=== PATIENT | female | born 1960 ===

== ENCOUNTER 2017-04-05 14:42 | Observation (INO) | payer OTHER ==
[2017-04-05 14:43] VITALS: BMI 33.9
--- NOTE | 2017-04-05 17:10 | ED PDOC ---
HPI: Hypertension/Hypotension Time Seen by Provider: 04/05/17 16:52 Chief Complaint (Nursing): High Blood Pressure Chief Complaint (Provider): High Blood Pressure History Per: Patient History/Exam Limitations: no limitations Onset/Duration Of Symptoms: Days (x3) Current Symptoms Are (Timing): Still Present Associated Symptoms: Headache (b/l), Other (Shortness of breath). denies: Chest Pain, Blurred Vision, Focal Weakness Exacerbating Factor(s): Pos: Recently Missed Doses Of Medication Additional Complaint(s): Mitzi Brothers is a 56 year old female, with a past medical history of HTN and hypercholesterolemia, who was sent to the emergency department from clinic for elevated blood pressure, headache and shortness of breath with exertion. She reports having bilateral headache onset for x4 weeks, relief with naprosyn at home. She is complaining of shortness of breath with ambulation for the past x2 weeks. Patient reports she has been noncompliant with hypertensive medications for the past x3 days because she ran out. She denies any leg swelling, chest pain, palpitations, paresthesia, weakness, or visual changes. No further medical complaints. PMD: Sam Joseph Past Medical History Reviewed: Historical Data, Nursing Documentation, Vital Signs Vital Signs: Last Vital Signs Temp 98.0 F 04/05/17 14:45 Pulse 77 04/05/17 14:45 Resp 16 04/05/17 14:45 BP 169/105 H 04/05/17 14:45 Pulse Ox 98 04/05/17 14:45 - Medical History PMH: HTN, Hypercholesterolemia, Kidney Stones Denies: HIV, Chronic Kidney Disease - Surgical History Surgical History: Cholecystectomy, - Family History Family History: States: Unknown Family Hx - Social History Current smoker - smoking cessation education provided: No Alcohol: None Drugs: Denies - Immunization History Hx Tetanus Toxoid Vaccination: No Hx Influenza Vaccination: No Hx Pneumococcal Vaccination: No - Home Medications Home Medications: Ambulatory Orders Medication Instructions Recorded Aspirin [Ecotrin] 81 mg PO DAILY 02/18/16 Furosemide [Lasix] 40 mg PO DAILY #30 tab 04/06/17 Losartan Potassium 100 mg PO DAILY #30 tablet 04/06/17 Lovastatin 20 mg PO DAILY #30 tablet 04/06/17 Metoprolol Succinate [Toprol XL] 100 mg PO DAILY #30 tab 04/06/17 - Allergies Allergies/Adverse Reactions: Allergies Allergy/AdvReac Type Severity Reaction Status Date / Time No Known Allergies Allergy Verified 04/05/17 14:45 Review of Systems ROS Statement: Except As Marked, All Systems Reviewed And Found Negative Eyes: Negative for: Vision Change Cardiovascular: Negative for: Chest Pain, Palpitations Respiratory: Positive for: Shortness of Breath (w/ exertion) Musculoskeletal: Negative for: Leg Pain (swelling) Neurological: Positive for: Headache (b/l). Negative for: Weakness, Other ( paresthesia) Physical Exam - Reviewed Nursing Documentation Reviewed: Yes Vital Signs Reviewed: Yes - Physical Exam Appears: Positive for: Well, Non-toxic, No Acute Distress Head Exam: Positive for: ATRAUMATIC, NORMAL INSPECTION, NORMOCEPHALIC Skin: Positive for: Normal Color, Warm, Dry Eye Exam: Positive for: Normal appearance, EOMI, PERRL ENT: Positive for: Normal ENT Inspection Neck: Positive for: Normal, Painless ROM, Supple Cardiovascular/Chest: Positive for: Regular Rate, Rhythm, Chest Non Tender. Negative for: Edema, Murmur Respiratory: Positive for: Normal Breath Sounds (clear auscultation b/l). Negative for: Accessory Muscle Use, Wheezing, Respiratory Distress Gastrointestinal/Abdominal: Positive for: Normal Exam, Soft. Negative for: Tenderness, Guarding, Rebound Back: Positive for: Normal Inspection. Negative for: L CVA Tenderness, R CVA Tenderness, Vertebral Tenderness Extremity: Positive for: Normal ROM. Negative for: Tenderness, Pedal Edema, Calf Tenderness, Deformity, Swelling Neurologic/Psych: Positive for: Alert, Oriented (x3). Negative for: Motor/ Sensory Deficits - Laboratory Results Result Diagrams: 04/05/17 17:15 04/05/17 17:15 - ECG Interpretation Of ECG: NSR @ 77, TWI II, aVF, V3-V6. O2 Sat by Pulse Oximetry: 98 (RA) Pulse Ox Interpretation: Normal Medical Decision Making Medical Decision Making: Initial Impression: Hypertension Initial Plan: --Head w/o contrast [CT] --EKG --B-Type Natriuretic peptide --CMP --Troponin I --Urine dipstick --CBC w/ differential --PTT --PT --Dilaudid 0.5 mg IVP --Urinalysis --reevaluation Accession No. : [id number] Patient Name / ID : IJEOMA KIRK A / [id number] Exam Date : 04/05/2017 17:23:22 ( Approved ) Study Comment : Sex / Age : F / 56Y Creator : Courtney Curry MD Dictator : Courtney Curry MD Bean Roaster : [employer] Consultant : Courtney Curry MD Approver2 : Report Date : 04/05/2017 17:49:45 My Comment : PROCEDURE: CT HEAD WITHOUT CONTRAST. HISTORY: WOOD X 4 weeks COMPARISON: None available. TECHNIQUE: Axial computed tomography images were obtained through the head/brain without intravenous contrast. Radiation dose: Total exam DLP = 816.53 mGy-cm. This CT exam was performed using one or more of the following dose reduction techniques: Automated exposure control, adjustment of the mA and/or kV according to patient size, and/or use of iterative reconstruction technique. FINDINGS: HEMORRHAGE: No intracranial hemorrhage. BRAIN: No mass effect or edema. The stevenson-white matter differentiation appears intact. Please note that MRI with diffusion imaging is more sensitive in the detection of acute ischemic event. VENTRICLES: No hydrocephalus. CALVARIUM: Unremarkable. PARANASAL SINUSES: Unremarkable as visualized. No significant inflammatory changes. MASTOID AIR CELLS: Unremarkable as visualized. No inflammatory changes. OTHER FINDINGS: None. IMPRESSION: No acute intracranial pathology identified. ~ Scribe Attestation: Documented byEstefany Amaya, acting as a scribe for Rufina Blue MD. Provider Scribe Attestation: All medical record entries made by the Scribe were at my direction and personally dictated by me. I have reviewed the chart and agree that the record accurately reflects my personal performance of the history, physical exam, medical decision making, and the department course for this patient. I have also personally directed, reviewed, and agree with the discharge instructions and disposition. Disposition - Clinical Impression Clinical Impression: Hypertensive emergency - Disposition Disposition Time: 19:04 Condition: STABLE - Pt Status Changed To: Hospital Disposition Of: Observation - POA Present On Arrival: None
[2017-04-05 17:30] LABS: BASO % 0.7 % (0.0-2.0); EOS # 0.1 K/uL (0.0-0.7); HEMOGLOBIN 14.3 g/dL (12.0-16.0); LYMPH # 2.6 K/uL (1.0-4.3); LYMPH % 37.6 % (20.0-40.0); MEAN CELL VOLUME 92.9 fl (81.0-99.0); MEAN CORPUSCULAR HEMOGLOBIN 31.2 pg (27.0-31.0); MEAN CORPUSCULAR HGB CONC 33.6 g/dL (33.0-37.0); MEAN PLATELET VOLUME 8.1 fl (7.2-11.7); MONO # 0.4 K/uL (0.0-0.8); MONO % 5.5 % (0.0-10.0); NEUT # 3.9 K/uL (1.8-7.0); NEUT % 55.2 % (50.0-75.0); NRBC % 0.1 % (0.0-0.0); RBC 4.59 Mil/uL (3.80-5.20); RED CELL DISTRIBUTION WIDTH 13.3 % (11.5-14.5)
[2017-04-05 17:38] LABS: PARTIAL THROMBOPLASTIN TIME 29.1 Seconds (25.6-37.1); PROTHROMBIN TIME 10.7 Seconds (9.8-13.1)
[2017-04-05 17:46] LABS: ALB/GLOB RATIO 1.3 (1.0-2.1); ALT/SGPT 42 U/L (9-52); AST/SGOT 34 U/L (14-36); BLOOD UREA NITROGEN 15 mg/dl (7-17); CALCIUM 9.5 mg/dL (8.4-10.2); GFR AFRICAN-AMERICAN > 60; GFR NON-AFRICAN AMERICAN 58
--- NOTE | 2017-04-05 17:51 | CT ---
PROCEDURE: CT HEAD WITHOUT CONTRAST. HISTORY: WOOD X 4 weeks COMPARISON: None available. TECHNIQUE: Axial computed tomography images were obtained through the head/brain without intravenous contrast. Radiation dose: Total exam DLP = 816.53 mGy-cm. This CT exam was performed using one or more of the following dose reduction techniques: Automated exposure control, adjustment of the mA and/or kV according to patient size, and/or use of iterative reconstruction technique. FINDINGS: HEMORRHAGE: No intracranial hemorrhage. BRAIN: No mass effect or edema. The stevenson-white matter differentiation appears intact. Please note that MRI with diffusion imaging is more sensitive in the detection of acute ischemic event. VENTRICLES: No hydrocephalus. CALVARIUM: Unremarkable. PARANASAL SINUSES: Unremarkable as visualized. No significant inflammatory changes. MASTOID AIR CELLS: Unremarkable as visualized. No inflammatory changes. OTHER FINDINGS: None. IMPRESSION: No acute intracranial pathology identified.
[2017-04-05 17:58] LABS: B-TYPE NATRIURETIC PEPTIDE 234 pg/ml (0-900)
[2017-04-05] MEDS ORDERED: Metoprolol Succinate 100 mg XL Tab PO STA (18:17)
[2017-04-05 18:20] LABS: SQUAMOUS EPITHIAL 8 /hpf (0-5); URINE BILIRUBIN NEGATIVE (NEGATIVE); URINE BLOOD NEGATIVE (NEGATIVE); URINE CLARITY SLIGHTY-CLOUDY (Clear); URINE COLOR YELLOW (YELLOW); URINE GLUCOSE (UA) NEG (Normal); URINE LEUKOCYTE ESTERASE NEG Leu/uL (Negative); URINE NITRATE NEGATIVE (NEGATIVE); URINE PROTEIN 30 mg/dL (NEGATIVE); URINE UROBILINOGEN 0.2-1.0 mg/dL (0.2-1.0)
--- NOTE | 2017-04-05 20:00 | CP.PCM.HP ---
History of Present Illness - History of Present Illness History of Present Illness: PMD: [facility] (Dr Joseph) Hx taken from patient and medical records Full code 56 year old female, with a PMHx of HTN and hypercholesterolemia, was sent to the emergency department from clinic for elevated blood pressure, headache and shortness of breath with exertion. She reports having bilateral chronic headache for long time related to increase in BP. She is complaining of shortness of breath with ambulation for the past x2 weeks she has to stop to catch her breath after walking 1 block. Patient reports she has been noncompliant with Metoprolol for the past x3 days because she ran out and that is when the headaches started. they are frontotemporal, constant, improves with NSAIDs. She denies any leg swelling, chest pain, palpitations, paresthesia, weakness, or visual changes. Needs 2 pillows to sleep. Sleeps about 6-7 hours at night, does not know if she snores, admit sleeping around 3-4 more hours in the morning till noon. This has been happening for the past 10 years or so. She follows up with Dr Vasquez(Cardio) for systolic CHF. Next appt . At the time of exam patient states has markedly improved. ED course: VS: upon arrival: HR 77, BP 169/105, O2sat 98% at the time of PE: HR 72, BP 137/91, O2sat 97% Labs: CBC/CMP unremarkable other than GFR 58 ProBnP WNL EKG: Sinus rhythm, Ischemic changes appears to be not acute(Pending report) Head CT W/O contrast: No acute disease Meds: Metoprolol 100 mg PO once Losartan 100 mg PO once Lasix 40 mg PO once Dilaudid 0.5 mg once PMHx: HTN, Systolic CHF, Hyperchol FHx: Mother DM SHx: Denies x3 Present on Admission - Present on Admission Any Indicators Present on Admission: No Review of Systems - Review of Systems All systems: reviewed and no additional remarkable complaints except - Cardiovascular Cardiovascular: Dyspnea on Exertion Additional comments: High blood pressure - Neurological Neurological: Headaches Past Patient History - Past Medical History & Family History Past Medical History?: Yes - Past Social History Alcohol: None Drugs: Denies - CARDIAC Hx Congestive Heart Failure: Yes Hx Hypercholesterolemia: Yes Hx Hypertension: Yes - PULMONARY Hx Respiratory Disorders: No - NEUROLOGICAL Hx Neurological Disorder: No - HEENT Hx HEENT Problems: No - RENAL Hx Chronic Kidney Disease: No Hx Kidney Stones: Yes - ENDOCRINE/METABOLIC Hx Endocrine Disorders: No - HEMATOLOGICAL/ONCOLOGICAL Hx Human Immunodeficiency Virus (HIV): No - INTEGUMENTARY Hx Dermatological Problems: No - MUSCULOSKELETAL/RHEUMATOLOGICAL Hx Musculoskeletal Disorders: No Hx Falls: No - GASTROINTESTINAL Hx Gastrointestinal Disorders: No - GENITOURINARY/GYNECOLOGICAL Hx Genitourinary Disorders: No - PSYCHIATRIC Hx Psychophysiologic Disorder: No Hx Substance Use: No - SURGICAL HISTORY Hx Surgeries: Yes Hx Section: Yes Hx Cholecystectomy: Yes - ANESTHESIA Hx Anesthesia: Yes Hx Anesthesia Reactions: No Hx Malignant Hyperthermia: No Meds Allergies/Adverse Reactions: Allergies Allergy/AdvReac Type Severity Reaction Status Date / Time No Known Allergies Allergy Verified 04/05/17 14:45 Physical Exam - Constitutional Appears: Non-toxic, No Acute Distress - Eye Exam Eye Exam: EOMI, PERRL - ENT Exam ENT Exam: Mucous Membranes Moist - Neck Exam Neck exam: Positive for: Normal Inspection. Negative for: Tenderness - Respiratory Exam Respiratory Exam: Clear to Auscultation Bilateral, NORMAL BREATHING PATTERN. absent: Rales, Wheezes - Cardiovascular Exam Cardiovascular Exam: REGULAR RHYTHM, +S1, +S2. absent: Gallop - GI/Abdominal Exam GI & Abdominal Exam: Normal Bowel Sounds, Soft. absent: Distended, Guarding, Rebound - Extremities Exam Extremities exam: Positive for: normal capillary refill. Negative for: calf tenderness, pedal edema, tenderness - Back Exam Back exam: absent: CVA tenderness (L), CVA tenderness (R) - Neurological Exam Neurological exam: Alert, Normal Gait, Oriented x3 - Psychiatric Exam Psychiatric exam: Normal Affect, Normal Mood - Skin Skin Exam: Intact, Normal Color, Warm Results - Vital Signs Recent Vital Signs: Last Vital Signs Temp 98.0 F 04/05/17 14:45 Pulse 72 04/05/17 19:18 Resp 18 04/05/17 19:18 BP 137/91 H 04/05/17 19:18 Pulse Ox 97 04/05/17 19:18 - Labs Result Diagrams: 04/05/17 17:15 04/05/17 17:15 Labs: Laboratory Results - last 24 hr 04/05/17 04/05/17 04/05/17 17:15 17:15 17:15 WBC 7.0 RBC 4.59 Hgb 14.3 Hct 42.6 MCV 92.9 MCH 31.2 H MCHC 33.6 RDW 13.3 Plt Count 194 MPV 8.1 Neut % (Auto) 55.2 Lymph % (Auto) 37.6 [place] % (Auto) 5.5 Eos % (Auto) 1.0 Baso % (Auto) 0.7 Neut # 3.9 Lymph # 2.6 [place] # 0.4 Eos # 0.1 Baso # 0.0 PT 10.7 INR 1.0 APTT 29.1 Sodium 143 Potassium 3.7 Chloride 104 Carbon Dioxide 29 Anion Gap 14 BUN 15 Creatinine 1.0 Est GFR ( Amer) > 60 Est GFR (Non-Af Amer) 58 Random Glucose 124 H Calcium 9.5 Total Bilirubin 0.2 AST 34 ALT 42 Alkaline Phosphatase 84 Troponin I < 0.0120 NT-Pro-B Natriuret Pep 234 Total Protein 7.0 Albumin 4.0 Globulin 3.0 Albumin/Globulin Ratio 1.3 Urine Color Urine Clarity Urine pH Ur Specific [place] Urine Protein Urine Glucose (UA) Urine Ketones Urine Blood Urine Nitrate Urine Bilirubin Urine Urobilinogen Ur Leukocyte Esterase Urine RBC (Auto) Urine Microscopic WBC Ur Squamous Epith Cells 04/05/17 18:05 WBC RBC Hgb Hct MCV MCH MCHC RDW Plt Count MPV Neut % (Auto) Lymph % (Auto) [place] % (Auto) Eos % (Auto) Baso % (Auto) Neut # Lymph # [place] # Eos # Baso # PT INR APTT Sodium Potassium Chloride Carbon Dioxide Anion Gap BUN Creatinine Est GFR ( Amer) Est GFR (Non-Af Amer) Random Glucose Calcium Total Bilirubin AST ALT Alkaline Phosphatase Troponin I NT-Pro-B Natriuret Pep Total Protein Albumin Globulin Albumin/Globulin Ratio Urine Color Yellow Urine Clarity Slighty-cloudy Urine pH 6.0 Ur Specific [place] 1.021 Urine Protein 30 Urine Glucose (UA) Neg Urine Ketones Negative Urine Blood Negative Urine Nitrate Negative Urine Bilirubin Negative Urine Urobilinogen 0.2-1.0 Ur Leukocyte Esterase Neg Urine RBC (Auto) 3 Urine Microscopic WBC 1 Ur Squamous Epith Cells 8 H Assessment & Plan - Assessment and Plan (Free Text) Assessment: 56 y/o F with PMHx of HTN, Systolic CHF admitted for Hypertensive urgency and worsening SOB on exertion Uncontrolled HTN -Chronic -S/p hypertensive urgency -stable, improved -Noncompliant with treatment for the past 3 days -Elevated BP and headaches -CT head W/O contrast unremarkable -CBC/CMP unremarkable except GFR 58 -Repeat CBC/CMP/EKG AM -Restart home meds Losartan 100 mg daily Metoprolol Suc ER 100 mg daily -Admit to telemetry for obs -Heart healthy diet Systolic CHF -Chronic -Worsening SOB on exertion -Previous Echo 06/2016: EF 20-25%, Septal hypokenesis -Myocardial perfusion study on 07/2016: EF 48% at rest. Reduced effort tolerance. (Please see previous records) -No LE edema, JVD or Rales on PE -ProBnp WNL -C/w Lasix 40 mg PO -CXR ordered -Consider Cardio consult AM. Has f/u appt with Cardio next month at the clinic. DVT prophylaxis -Lovenox 40 mg SQ daily
[2017-04-06] MEDS ORDERED: Influenza Vaccine 18yr & older 0.5 ML/45 MCG SYR IM ONE (06:00)
[2017-04-06 08:27] VITALS: RESP 20
[2017-04-06] MEDS ORDERED: Metoprolol Succinate 100 mg XL Tab PO SCH (09:00)
[2017-04-06] MEDS ORDERED: Metoprolol Succinate 50 mg XL Tab PO SCH (09:00)
[2017-04-06] MEDS ORDERED: Enoxaparin 40 mg Syringe SC SCH (09:00)
--- NOTE | 2017-04-06 11:15 | CP.PCM.DIS ---
Provider - Provider Date of Admission: 04/05/17 19:04 Attending physician: Elida Diane MD Primary care physician: Leesa Mix Time Spent in preparation of Discharge (in minutes): 37 Diagnosis - Discharge Diagnosis (1) Headache Status: Acute (2) Hypertension Status: Chronic Hospital Course - Lab Results Lab Results: Most Recent Lab Values WBC 7.0 K/uL (4.8-10.8) 04/05/17 17:15 RBC 4.59 Mil/uL (3.80-5.20) 04/05/17 17:15 Hgb 14.3 g/dL (12.0-16.0) 04/05/17 17:15 Hct 42.6 % (34.0-47.0) 04/05/17 17:15 MCV 92.9 fl (81.0-99.0) 04/05/17 17:15 MCH 31.2 pg (27.0-31.0) H 04/05/17 17:15 MCHC 33.6 g/dL (33.0-37.0) 04/05/17 17:15 RDW 13.3 % (11.5-14.5) 04/05/17 17:15 Plt Count 194 K/uL (130-400) 04/05/17 17:15 MPV 8.1 fl (7.2-11.7) 04/05/17 17:15 Neut % (Auto) 55.2 % (50.0-75.0) 04/05/17 17:15 Lymph % (Auto) 37.6 % (20.0-40.0) 04/05/17 17:15 Kay % (Auto) 5.5 % (0.0-10.0) 04/05/17 17:15 Eos % (Auto) 1.0 % (0.0-4.0) 04/05/17 17:15 Baso % (Auto) 0.7 % (0.0-2.0) 04/05/17 17:15 Neut # 3.9 K/uL (1.8-7.0) 04/05/17 17:15 Lymph # 2.6 K/uL (1.0-4.3) 04/05/17 17:15 Kay # 0.4 K/uL (0.0-0.8) 04/05/17 17:15 Eos # 0.1 K/uL (0.0-0.7) 04/05/17 17:15 Baso # 0.0 K/uL (0.0-0.2) 04/05/17 17:15 PT 10.7 Seconds (9.8-13.1) 04/05/17 17:15 INR 1.0 (0.9-1.2) 04/05/17 17:15 APTT 29.1 Seconds (25.6-37.1) 04/05/17 17:15 Sodium 143 mmol/l (132-148) 04/05/17 17:15 Potassium 3.7 MMOL/L (3.6-5.0) 04/05/17 17:15 Chloride 104 mmol/L (98-107) 04/05/17 17:15 Carbon Dioxide 29 mmol/L (22-30) 04/05/17 17:15 Anion Gap 14 (10-20) 04/05/17 17:15 BUN 15 mg/dl (7-17) 04/05/17 17:15 Creatinine 1.0 mg/dl (0.7-1.2) 04/05/17 17:15 Est GFR ( Amer) > 60 04/05/17 17:15 Est GFR (Non-Af Amer) 58 04/05/17 17:15 Random Glucose 124 mg/dL (65-105) H 04/05/17 17:15 Calcium 9.5 mg/dL (8.4-10.2) 04/05/17 17:15 Total Bilirubin 0.2 mg/dl (0.2-1.3) 04/05/17 17:15 AST 34 U/L (14-36) 04/05/17 17:15 ALT 42 U/L (9-52) 04/05/17 17:15 Alkaline Phosphatase 84 U/L (38-126) 04/05/17 17:15 Troponin I < 0.0120 ng/mL (0.00-0.120) 04/05/17 17:15 NT-Pro-B Natriuret Pep 234 pg/ml (0-900) 04/05/17 17:15 Total Protein 7.0 G/DL (6.3-8.2) 04/05/17 17:15 Albumin 4.0 g/dL (3.5-5.0) 04/05/17 17:15 Globulin 3.0 gm/dL (2.2-3.9) 04/05/17 17:15 Albumin/Globulin Ratio 1.3 (1.0-2.1) 04/05/17 17:15 Urine Color Yellow (YELLOW) 04/05/17 18:05 Urine Clarity Slighty-cloudy (Clear) 04/05/17 18:05 Urine pH 6.0 (5.0-8.0) 04/05/17 18:05 Ur Specific [place] 1.021 (1.003-1.030) 04/05/17 18:05 Urine Protein 30 mg/dL (NEGATIVE) 04/05/17 18:05 Urine Glucose (UA) Neg mg/dL (Normal) 04/05/17 18:05 Urine Ketones Negative mg/dL (NEGATIVE) 04/05/17 18:05 Urine Blood Negative (NEGATIVE) 04/05/17 18:05 Urine Nitrate Negative (NEGATIVE) 04/05/17 18:05 Urine Bilirubin Negative (NEGATIVE) 04/05/17 18:05 Urine Urobilinogen 0.2-1.0 mg/dL (0.2-1.0) 04/05/17 18:05 Ur Leukocyte Esterase Neg [place]/uL (Negative) 04/05/17 18:05 Urine RBC (Auto) 3 /hpf (0-3) 04/05/17 18:05 Urine Microscopic WBC 1 /hpf (0-5) 04/05/17 18:05 Ur Squamous Epith Cells 8 /hpf (0-5) H 04/05/17 18:05 - Hospital Course Hospital Course: 56 y/o F with a PMHx of HTN was admitted for evaluation of severe headache and elevated BP. Pt stopped her medication for 3-4 days because no refill. CT of head was unremarakble. CBC, CMP and pro-BNP were WNL. EKG showed sinus rhythm, ischemic changes appears to be NOT acute. BP has remained elevated in hospital but stable. Pt stayed 1 night for observation, no acute events overnight, headache improved after having medication last night and night-sleep. Pt afebrile and tolerating PO. -Pt discharged today, 04/06/17, on : >Metoprolol ER PO 100mg daily, >Losartan 100mg PO daily, >Lovastatin 20mg PO daily, >Lasix 40mg PO daily, -Pt will f/u tomorrow with PMD Dr Joseph and netsuite consultant, Dr Leesa Vasquez in 2 weeks. Medication adherence reinforced to patient. - Date & Time of H&P Date of H&P: 04/05/17 Time of H&P: 20:00 Discharge Exam - Head Exam Head Exam: ATRAUMATIC, NORMAL INSPECTION, NORMOCEPHALIC - Eye Exam Eye Exam: EOMI, Normal appearance - ENT Exam ENT Exam: Mucous Membranes Moist - Neck Exam Neck exam: Full Rom, Meningismus - Respiratory Exam Respiratory Exam: Clear to PA & Lateral, NORMAL BREATHING PATTERN - Cardiovascular Exam Cardiovascular Exam: REGULAR RHYTHM, +S1, +S2 - GI/Abdominal Exam GI & Abdominal Exam: Normal Bowel Sounds, Soft, Unremarkable. absent: Tenderness - Extremities Exam Extremities exam: full ROM - Neurological Exam Neurological exam: Alert, Oriented x3 - Psychiatric Exam Psychiatric exam: Normal Mood Discharge Plan - Discharge Medications Prescriptions: Furosemide [Lasix] 40 mg PO DAILY #30 tab Losartan Potassium 100 mg PO DAILY #30 tablet Lovastatin 20 mg PO DAILY #30 tablet Metoprolol Succinate [Toprol XL] 100 mg PO DAILY #30 tab - Follow Up Plan Condition: GOOD Disposition: HOME/ ROUTINE Additional Instructions: -Please F/U with PMD tomorrow 04/07/17 at 10:40 am at [facility]. -F/U with netsuite consultant Dr Vasquez on 04/18/17. -C/w medications as prescribed. -Healthy diet and regular exercise as discussed.
[2017-04-06 12:45] VITALS: BP 152/87; PULSE 68; TEMP 98.3
[2017-04-07 11:06] VITALS: O2SAT 98
--- NOTE | 2017-04-07 18:36 | CARD ---
APPROVED REPORT EKG Measurement Heart [id number] <Conclusion> Normal sinus rhythm Minimal voltage criteria for LVH, may be normal variant ST & T wave abnormality, consider anterolateral ischemia Abnormal ECG
== END 2017-04-06 14:30 | disposition home or self-care (01) ==
LOC: H.ER 14:42 → H.ERHOLD 19:04 → H.TEL 22:19
PROVIDERS: ADMIT Family Medicine Geriatric Medicine; ATTEND Family Medicine Geriatric Medicine
DX: I16.1 Hypertensive emergency (principal); I11.0 Hypertensive heart disease with heart failure; I50.22 Chronic systolic (congestive) heart failure; E78.00 Pure hypercholesterolemia, unspecified; Z91.19 Patient's noncompliance with other medical treatment and regimen; Z23 Encounter for immunization; Z79.82 Long term (current) use of aspirin; Z87.442 Personal history of urinary calculi
CPT/HCPCS: 70450; 80053; 81003; 81025; 83880; 84484; 85025; 85610; 85730; 90471; 96374; 99284; G0378; J1170; J1650; Q2035

== ENCOUNTER 2017-05-16 09:47 | Day surgery (SDC) | payer OTHER ==
[2017-01-20 09:27] VITALS: BMI 33.9
[2017-05-16] MEDS ORDERED: Lactated Ringer's 1,000 ML IV ONE (09:55)
[2017-05-16 10:27] VITALS: TEMP 97.9
[2017-05-16] MEDS ORDERED: Lidocaine PF 2% (5 ml) Inj (For Cardiac Arrhy) IV ONE ×2 (11:09→11:10)
[2017-05-16] MEDS ORDERED: Propofol 10 mg/ml Inj (20 ML) ONE (11:09)
[2017-05-16] MEDS ORDERED: Etomidate 20 mg/10ml Inj IV ONE (11:09)
[2017-05-16 12:10] VITALS: BP 120/72; PULSE 78; RESP 18; O2SAT 97
== END 2017-05-16 12:10 | disposition home or self-care (01) ==
LOC: H.ENDO 09:47
PROVIDERS: ATTEND Internal Medicine Gastroenterology
DX: Z12.11 Encounter for screening for malignant neoplasm of colon (principal); I10 Essential (primary) hypertension; D12.3 Benign neoplasm of transverse colon; K64.8 Other hemorrhoids
CPT/HCPCS: 45380; 88305; J2704; J7120